=== PATIENT | male | born 1970 | race Caucasian/White ===

== ENCOUNTER → 2019-11-18 | Outpatient (CLI) | payer BC | LOC: LABNPT 08:32 | PROVIDERS: ATTEND Nurse Practitioner Family | DX: Z20.828 Contact with and (suspected) exposure to other viral communicable diseases (principal) | CPT/HCPCS: 87635 ==

== ENCOUNTER → 2020-03-04 | Outpatient (CLI) | payer BC | LOC: LABNPT 08:15 | PROVIDERS: ATTEND Emergency Medicine | DX: U07.1 COVID-19 (principal) | CPT/HCPCS: 87635 ==